=== PATIENT | female | born 2000 | race Asian ===

== ENCOUNTER → 2019-01-03 | Outpatient (CLI) | payer OTHER ==
[~2019-01-03] MED LIST: CATHETER FLUSH 10 ML SYR IV PRN; HOLD METFORMIN - RECEIVED CONTRAST 20 ML VIAL IV SCH; IOHEXOL 350 MG/ML 100 ML (OMNIPAQUE 350) VIAL IV ONE; NS 100 ML (IVPB) BAG IV ONE; diphenhydrAMINE 50 MG/ML INJ (BENADRYL) IVP ONE; diphenhydrAMINE 50 MG/ML INJ (BENADRYL) ONE
--- NOTE | 2019-01-03 11:45 | NUR ---
[employer] computer system technician notified me of patient who had just received IV contrast for CT scan was complaining of itchiness. Upon examining patient, she was itching and had red welts on her upper back and chest. Dr. Herandez ordered Benadryl 50mg IV. BP 119/73 HR 73. Dose administered. Patient denying any difficulty or changes to breathing or swallowing. Will continue to monitor patient. 1230: Patient denies itching, improvement noted to hives. BP127/77. Dr. Hernadez updated on patient condition and OK with patient being discharged. Patient has friend at bedside to transport her to [facility] at [facility] to see Dr. Armstrong. Patient discharged.
--- NOTE | 2019-01-03 11:53 | Diagnostic Imaging Report ---
PROCEDURE: CT angiography Chest TECHNIQUE: After intravenous administration of contrast, thin section axial CT angiography of the chest was performed. 3D MIP reconstructions were made. All CT scans use one or more of the following dose optimizing techniques: automated exposure control, MA and/or KvP adjustment based on a patient size and exam type, or iterative reconstruction. INDICATION: Fainting, elevated d-dimer. COMPARISON: None available. FINDINGS: Vasculature: No pulmonary emboli. No CT evidence of pulmonary hypertension or right ventricular strain. Thoracic aorta is normal in caliber. No aortic dissection or pseudoaneurysm. Great vessels are widely patent from the aortic arch. Heart and mediastinum: Visualized thyroid is normal. No supraclavicular, axillary, or intra-thoracic lymphadenopathy. The heart is normal in size without pericardial effusion. Pleura: No pleural effusion or pneumothorax. Lungs and airway: No endoluminal lesion in the trachea or central bronchi. No pulmonary mass, nodule or consolidation. Upper abdomen: Allowing for the phase of contrast, no acute abnormality in the upper abdomen is seen. Musculoskeletal: No concerning osseous lesion. IMPRESSION: 1. No acute cardiopulmonary process. Specifically, no pulmonary emboli or acute aortic syndrome. 2. Great vessels of the aortic arch are widely patent. Dictated by: Dictated on workstation # [id number]
== END ==
LOC: RAD 10:33
PROVIDERS: ATTEND Nurse Practitioner Family
DX: R55 Syncope and collapse (principal); R79.1 Abnormal coagulation profile; R06.02 Shortness of breath
CPT/HCPCS: 71275